=== PATIENT | female | born 1935 | race Caucasian/White ===

== ENCOUNTER 2018-04-11 11:20 | Inpatient (IN) | payer MEDICARE, OTHER ==
[2018-04-11] MEDS: SOD CHLORIDE 0.9% 500 ML IV (11:38)
[2018-04-11] MEDS: PANTOPRAZOLE 40 MG INJ IV (11:38)
[2018-04-11 11:48] LABS: ADD MAN DIFF? NO
[2018-04-11 11:51] LABS: BASOPHILS % 0.2 % (0.0-2.0); EOSINOPHILS % 0.1 % (0.0-7.0); HEMATOCRIT 25.8 % (37.0-47.0); HEMOGLOBIN 8.2 g/dl (12.0-16.0); LYMPHOCYTES # 2.2 10^3/ul (0.8-2.9); LYMPHOCYTES % 16.4 % (15.0-51.0); MEAN CORPUSCULAR HEMOGLOBIN 22.5 pg (29.0-33.0); MEAN CORPUSCULAR HGB CONC 31.8 g/dl (32.0-37.0); MEAN CORPUSCULAR VOLUME 70.7 fl (82.0-101.0); MEAN PLATELET VOLUME 10.5 fl (7.4-10.4); MONOCYTE # 0.8 10^3/ul (0.3-0.9); NEUTROPHIL # 10.1 10^3/ul (1.6-7.5); NEUTROPHILS % 76.4 % (39.0-77.0); PLATELET COUNT 368 10^3/UL (140-415); RED BLOOD COUNT 3.65 10^6/ul (4.20-5.40); RED CELL DISTRIBUTION WIDTH 15.1 % (11.5-14.5)
[2018-04-11 11:51] LABS: WHITE BLOOD COUNT 13.2 10^3/ul (4.8-10.8)
[2018-04-11] MEDS ORDERED: ONDANSETRON 4 MG INJ (12:11)
[2018-04-11 12:14] LABS: ALANINE AMINOTRANSFERASE 11 IU/L (13-69); ALBUMIN 3.7 g/dl (3.3-4.9); ALBUMIN/GLOBULIN RATIO 1.37; ALKALINE PHOSPHATASE 52 IU/L (42-121); ANION GAP 8 (5-13); ASPARTATE AMINO TRANSFERASE 15 IU/L (15-46); BLOOD UREA NITROGEN 39 mg/dl (7-20); CALCIUM 9.4 mg/dl (8.4-10.2); CARBON DIOXIDE 28 mmol/L (21-31); CHLORIDE 98 mmol/L (97-110); CREATININE 0.63 mg/dl (0.44-1.00); GLUCOSE 143 mg/dl (70-220); SODIUM 134 mmol/L (135-144); TOTAL PROTEIN 6.4 g/dl (6.1-8.1)
[2018-04-11 12:21] LABS: INR 1.18; PARTIAL THROMBOPLASTIN TIME 27.9 Sec (23.0-35.0); PROTIME 15.1 Sec (11.9-14.9); PT RATIO 1.2
[2018-04-11] MEDS: ONDANSETRON 4 MG INJ IV (12:30)
[2018-04-11] MEDS ORDERED: LABETALOL HCL 20MG INJ IV ×2 (13:30→19:00)
[2018-04-11] MEDS ORDERED: NACL 0.9% 3 ML SYG IV (13:30)
[2018-04-11] MEDS ORDERED: morphine 2 MG INJ IV (13:30)
[2018-04-11] MEDS ORDERED: ACETAMINOPHEN 325 MG TAB PO (13:30)
[2018-04-11] MEDS: SOD CHLORIDE 0.9% 1,000 ML IV ×2 (13:55→21:04)
[2018-04-11 14:40] LABS: IMMEDIATE SPIN CROSSMATCH 1 3
[2018-04-11] MEDS: CEFTRIAXONE 1 GM/50 ML (PMX) 50 ML IVPB (16:53)
[2018-04-11] MEDS: SOD CHLORIDE 0.9% 0 ML IV (16:59)
[2018-04-11] MEDS: OCTREOTIDE 1 MG in DEXTROSE 5% 95 ML IV (17:27)
[2018-04-11] MEDS: PANTOPRAZOLE IV 80 MG in SOD CHLORIDE 0.9% 100 ML IV (17:27)
[2018-04-11] MEDS ORDERED: OCTREOTIDE 1 MG in DEXTROSE 5% 95 ML IV (19:00)
[2018-04-11] MEDS ORDERED: ONDANSETRON 4 MG INJ IV (19:00)
[2018-04-11] MEDS ORDERED: FENTAnyl 50 MCG/ML VIAL IV (19:00)
[2018-04-11] MEDS ORDERED: DIPHENHYDRAMINE 50 MG INJ IV (19:00)
[2018-04-11] MEDS ORDERED: BARIUM SULF 2% 450 ML BTL (BERRY SMOOTHIE) PO (19:30)
[2018-04-11 19:54] LABS: HEMATOCRIT 25.8 % (37.0-47.0); HEMOGLOBIN 8.2 g/dl (12.0-16.0)
[2018-04-11] MEDS: SUCRALFATE (100 MG/ML) 10ML CUP PO (20:59)
[2018-04-12 01:09] LABS: HEMATOCRIT 22.6 % (37.0-47.0); HEMOGLOBIN 7.2 g/dl (12.0-16.0)
[2018-04-12] MEDS: PANTOPRAZOLE IV 80 MG in SOD CHLORIDE 0.9% 100 ML IV ×4 (03:31→20:51)
[2018-04-12] MEDS: SOD CHLORIDE 0.9% 1,000 ML IV ×2 (05:17→12:43)
[2018-04-12 05:39] LABS: ADD MAN DIFF? NO
[2018-04-12 05:49] LABS: BASOPHILS % 0.3 % (0.0-2.0); EOSINOPHILS # 0.2 10^3/ul (0.0-0.5); EOSINOPHILS % 1.7 % (0.0-7.0); HEMOGLOBIN 7.3 g/dl (12.0-16.0); LYMPHOCYTES # 2.7 10^3/ul (0.8-2.9); LYMPHOCYTES % 30.4 % (15.0-51.0); MEAN CORPUSCULAR HEMOGLOBIN 23.4 pg (29.0-33.0); MEAN CORPUSCULAR HGB CONC 31.7 g/dl (32.0-37.0); MEAN CORPUSCULAR VOLUME 73.7 fl (82.0-101.0); MEAN PLATELET VOLUME 10.7 fl (7.4-10.4); MONOCYTE # 0.6 10^3/ul (0.3-0.9); MONOCYTES % 6.8 % (0.0-11.0); NEUTROPHIL # 5.2 10^3/ul (1.6-7.5); NEUTROPHILS % 59.7 % (39.0-77.0); PLATELET COUNT 305 10^3/UL (140-415); RED BLOOD COUNT 3.12 10^6/ul (4.20-5.40)
[2018-04-12 05:49] LABS: WHITE BLOOD COUNT 8.7 10^3/ul (4.8-10.8)
[2018-04-12 06:09] LABS: ALANINE AMINOTRANSFERASE 9 IU/L (13-69); ALBUMIN 2.9 g/dl (3.3-4.9); ALKALINE PHOSPHATASE 43 IU/L (42-121); ANION GAP 6 (5-13); ASPARTATE AMINO TRANSFERASE 14 IU/L (15-46); BLOOD UREA NITROGEN 29 mg/dl (7-20); CALCIUM 8.7 mg/dl (8.4-10.2); CARBON DIOXIDE 25 mmol/L (21-31); CHLORIDE 104 mmol/L (97-110); CREATININE 0.62 mg/dl (0.44-1.00); GLUCOSE 128 mg/dl (70-220); POTASSIUM 3.9 mmol/L (3.5-5.1); SODIUM 135 mmol/L (135-144); TOTAL PROTEIN 5.3 g/dl (6.1-8.1)
[2018-04-12 06:24] LABS: HEMOGLOBIN A1C 5.5 % (0-5.9)
[2018-04-12] MEDS: SUCRALFATE (100 MG/ML) 10ML CUP PO ×4 (08:08→20:48)
[2018-04-12] MEDS: OCTREOTIDE 1 MG in DEXTROSE 5% 95 ML IV ×2 (11:00→14:09)
[2018-04-12] MEDS: IOHEXOL 14.3 MG(I)/ML (ADULT) BTL PO (11:37)
[2018-04-12] MEDS: SOD CHLORIDE 0.9% 100 ML (12:35)
[2018-04-12] MEDS: IOHEXOL 300MG/ML 150 ML BTL (12:35)
[2018-04-12] MEDS ORDERED: ALBUTEROL/IPRATROPIUM (NEB) 3 ML AMP HHN ×2 (13:10→13:30)
[2018-04-12] MEDS: FERROUS SULFATE (EC) 325 MG TAB PO ×2 (14:56→20:48)
[2018-04-12] MEDS: FUROSEMIDE 20 MG INJ IV (14:56)
[2018-04-12] MEDS: HYDROCHLOROTHIAZIDE 25 MG TAB PO (14:57)
[2018-04-12] MEDS: AMLODIPINE 10 MG TAB PO (14:57)
[2018-04-12] MEDS: ARIPIPRAZOLE 2 MG TAB PO (14:58)
[2018-04-12] MEDS: CEFTRIAXONE 1 GM/50 ML (PMX) 50 ML IVPB (14:58)
[2018-04-12] MEDS: ATENOLOL 50 MG TAB PO (14:58)
[2018-04-12] MEDS: ALBUTEROL/IPRATROPIUM (NEB) 3 ML AMP HHN (16:19)
[2018-04-12] MEDS: ATORVASTATIN 80 MG TAB PO (20:48)
[2018-04-12] MEDS: QUETIAPINE 25 MG TAB PO (20:48)
[2018-04-12] MEDS: TAMSULOSIN (SR) 0.4 MG CAP PO (20:48)
[2018-04-13 05:44] LABS: ADD MAN DIFF? NO
[2018-04-13 05:56] LABS: BASOPHIL # 0.1 10^3/ul (0.0-0.1); BASOPHILS % 0.7 % (0.0-2.0); EOSINOPHILS # 0.3 10^3/ul (0.0-0.5); HEMATOCRIT 25.5 % (37.0-47.0); HEMOGLOBIN 8.2 g/dl (12.0-16.0); LYMPHOCYTES # 3.7 10^3/ul (0.8-2.9); LYMPHOCYTES % 37.5 % (15.0-51.0); MEAN CORPUSCULAR HGB CONC 32.2 g/dl (32.0-37.0); MEAN CORPUSCULAR VOLUME 74.8 fl (82.0-101.0); MEAN PLATELET VOLUME 10.4 fl (7.4-10.4); MONOCYTE # 0.7 10^3/ul (0.3-0.9); MONOCYTES % 7.3 % (0.0-11.0); NEUTROPHILS % 50.4 % (39.0-77.0); PLATELET COUNT 316 10^3/UL (140-415); RED BLOOD COUNT 3.41 10^6/ul (4.20-5.40); RED CELL DISTRIBUTION WIDTH 16.5 % (11.5-14.5)
[2018-04-13] MEDS: PANTOPRAZOLE IV 80 MG in SOD CHLORIDE 0.9% 100 ML IV ×3 (06:22→16:07)
[2018-04-13 06:24] LABS: LIPASE 168 U/L (23-300)
[2018-04-13 06:24] LABS: AMYLASE 40 U/L (11-123)
[2018-04-13 06:27] LABS: ALANINE AMINOTRANSFERASE 17 IU/L (13-69); ALBUMIN/GLOBULIN RATIO 1.11; ALKALINE PHOSPHATASE 43 IU/L (42-121); ANION GAP 7 (5-13); ASPARTATE AMINO TRANSFERASE 17 IU/L (15-46); BILIRUBIN,INDIRECT 0.1 mg/dl (0-1.1); BILIRUBIN,TOTAL 0.1 mg/dl (0.2-1.3); BLOOD UREA NITROGEN 18 mg/dl (7-20); CALCIUM 8.7 mg/dl (8.4-10.2); CARBON DIOXIDE 29 mmol/L (21-31); CHLORIDE 93 mmol/L (97-110); CREATININE 0.61 mg/dl (0.44-1.00); GLUCOSE 107 mg/dl (70-220); MAGNESIUM 1.8 mg/dl (1.7-2.5); POTASSIUM 3.6 mmol/L (3.5-5.1); SODIUM 129 mmol/L (135-144); TOTAL PROTEIN 5.7 g/dl (6.1-8.1)
[2018-04-13] MEDS: SUCRALFATE (100 MG/ML) 10ML CUP PO ×4 (08:43→21:28)
[2018-04-13] MEDS: FERROUS SULFATE (EC) 325 MG TAB PO ×2 (08:43→21:28)
[2018-04-13] MEDS: AMLODIPINE 10 MG TAB PO (08:43)
[2018-04-13] MEDS: HYDROCHLOROTHIAZIDE 25 MG TAB PO (08:44)
[2018-04-13] MEDS: ATENOLOL 50 MG TAB PO (08:45)
[2018-04-13] MEDS: ARIPIPRAZOLE 2 MG TAB PO (10:36)
[2018-04-13] MEDS: CEFTRIAXONE 1 GM/50 ML (PMX) 50 ML IVPB (12:59)
[2018-04-13] MEDS: PROPOFOL 20 ML (21:28)
[2018-04-13] MEDS: ATORVASTATIN 20 MG TAB PO (21:28)
[2018-04-13] MEDS: LIDOCAINE 2% (SDV) 5 ML INJ (21:29)
[2018-04-13] MEDS: HYDROCODONE/APAP (5/325) TAB PO (21:39)
[2018-04-14] MEDS: PANTOPRAZOLE IV 80 MG in SOD CHLORIDE 0.9% 100 ML IV ×3 (02:23→22:53)
[2018-04-14 06:25] LABS: ADD MAN DIFF? NO
[2018-04-14 06:31] LABS: BASOPHIL # 0.1 10^3/ul (0.0-0.1); BASOPHILS % 0.8 % (0.0-2.0); EOSINOPHILS # 0.5 10^3/ul (0.0-0.5); EOSINOPHILS % 4.2 % (0.0-7.0); HEMATOCRIT 25.3 % (37.0-47.0); HEMOGLOBIN 8.1 g/dl (12.0-16.0); LYMPHOCYTES # 3.9 10^3/ul (0.8-2.9); LYMPHOCYTES % 35.6 % (15.0-51.0); MEAN CORPUSCULAR HEMOGLOBIN 23.9 pg (29.0-33.0); MEAN CORPUSCULAR VOLUME 74.6 fl (82.0-101.0); MEAN PLATELET VOLUME 10.5 fl (7.4-10.4); MONOCYTE # 0.9 10^3/ul (0.3-0.9); MONOCYTES % 8.4 % (0.0-11.0); NEUTROPHIL # 5.5 10^3/ul (1.6-7.5); NEUTROPHILS % 49.4 % (39.0-77.0); PLATELET COUNT 336 10^3/UL (140-415); RED BLOOD COUNT 3.39 10^6/ul (4.20-5.40); RED CELL DISTRIBUTION WIDTH 16.3 % (11.5-14.5)
[2018-04-14 06:31] LABS: WHITE BLOOD COUNT 11.1 10^3/ul (4.8-10.8)
[2018-04-14 07:10] LABS: ANION GAP 6 (5-13); BLOOD UREA NITROGEN 18 mg/dl (7-20); CALCIUM 8.6 mg/dl (8.4-10.2); CARBON DIOXIDE 31 mmol/L (21-31); CHLORIDE 90 mmol/L (97-110); CREATININE 0.65 mg/dl (0.44-1.00); GLUCOSE 95 mg/dl (70-220); MAGNESIUM 1.8 mg/dl (1.7-2.5); POTASSIUM 3.4 mmol/L (3.5-5.1); SODIUM 127 mmol/L (135-144)
[2018-04-14 07:15] LABS: FREE T4 (FREE THYROXINE) 1.57 ng/dl (0.85-1.93)
[2018-04-14 08:34] LABS: THYROID STIMULATING HORMONE 0.464 MIU/L (0.465-4.680)
[2018-04-14] MEDS: FERROUS SULFATE (EC) 325 MG TAB PO ×2 (10:06→21:02)
[2018-04-14] MEDS: SUCRALFATE (100 MG/ML) 10ML CUP PO ×4 (10:06→21:02)
[2018-04-14] MEDS: AMLODIPINE 10 MG TAB PO (10:07)
[2018-04-14 11:32] LABS: SODIUM,URINE RANDOM 129 mmol/L (30-90)
[2018-04-14] MEDS: CEFTRIAXONE 1 GM/50 ML (PMX) 50 ML IVPB (12:46)
[2018-04-14] MEDS: metroNIDAZOLE 500 MG TAB PO ×2 (13:34→21:02)
[2018-04-14 13:37] LABS: IRON 60 ug/dl (35-150)
[2018-04-14 13:46] LABS: % IRON SATURATION 19 % SAT (22-52); TOTAL IRON BINDING CAPACITY 324 ug/dl (241-421)
[2018-04-14] MEDS: PANTOPRAZOLE (EC) 40 MG TAB PO (17:26)
[2018-04-14] MEDS: ATORVASTATIN 20 MG TAB PO (21:02)
[2018-04-15] MEDS: PANTOPRAZOLE (EC) 40 MG TAB PO (05:44)
[2018-04-15] MEDS: metroNIDAZOLE 500 MG TAB PO ×3 (05:44→21:06)
[2018-04-15] MEDS: HYDROCODONE/APAP (5/325) TAB PO (06:02)
[2018-04-15] MEDS: AMLODIPINE 10 MG TAB PO (08:34)
[2018-04-15] MEDS: FERROUS SULFATE (EC) 325 MG TAB PO ×2 (08:34→21:06)
[2018-04-15] MEDS: SUCRALFATE (100 MG/ML) 10ML CUP PO ×4 (08:35→21:06)
[2018-04-15] MEDS: ONDANSETRON 4 MG INJ IV (08:43)
[2018-04-15 10:59] LABS: ADD MAN DIFF? NO
[2018-04-15 11:02] LABS: WHITE BLOOD COUNT 12.7 10^3/ul (4.8-10.8)
[2018-04-15 11:02] LABS: BASOPHIL # 0.1 10^3/ul (0.0-0.1); BASOPHILS % 0.5 % (0.0-2.0); EOSINOPHILS # 0.2 10^3/ul (0.0-0.5); EOSINOPHILS % 1.5 % (0.0-7.0); HEMATOCRIT 22.4 % (37.0-47.0); HEMOGLOBIN 7.3 g/dl (12.0-16.0); LYMPHOCYTES # 2.3 10^3/ul (0.8-2.9); MEAN CORPUSCULAR HEMOGLOBIN 24.4 pg (29.0-33.0); MEAN CORPUSCULAR HGB CONC 32.6 g/dl (32.0-37.0); MEAN CORPUSCULAR VOLUME 74.9 fl (82.0-101.0); MEAN PLATELET VOLUME 10.2 fl (7.4-10.4); MONOCYTE # 0.9 10^3/ul (0.3-0.9); MONOCYTES % 6.9 % (0.0-11.0); NEUTROPHIL # 8.9 10^3/ul (1.6-7.5); NEUTROPHILS % 70.3 % (39.0-77.0); PLATELET COUNT 326 10^3/UL (140-415); RED BLOOD COUNT 2.99 10^6/ul (4.20-5.40)
[2018-04-15 11:31] LABS: ALANINE AMINOTRANSFERASE 12 IU/L (13-69); ALBUMIN/GLOBULIN RATIO 1.36; ALKALINE PHOSPHATASE 48 IU/L (42-121); ANION GAP 8 (5-13); ASPARTATE AMINO TRANSFERASE 14 IU/L (15-46); BLOOD UREA NITROGEN 17 mg/dl (7-20); CALCIUM 8.6 mg/dl (8.4-10.2); CARBON DIOXIDE 28 mmol/L (21-31); CHLORIDE 91 mmol/L (97-110); CREATININE 0.55 mg/dl (0.44-1.00); GLUCOSE 152 mg/dl (70-220); POTASSIUM 3.4 mmol/L (3.5-5.1); SODIUM 127 mmol/L (135-144); TOTAL PROTEIN 5.2 g/dl (6.1-8.1)
[2018-04-15] MEDS: SOD FERRIC GLUC COMPLX 125 MG in SOD CHLORIDE 0.9% 100 ML IVPB (11:32)
[2018-04-15 14:05] LABS: OCCULT BLOOD STOOL POSITIVE (NEGATIVE)
[2018-04-15] MEDS: CEFTRIAXONE 1 GM/50 ML (PMX) 50 ML IVPB (14:40)
[2018-04-15] MEDS: PANTOPRAZOLE IV 80 MG in SOD CHLORIDE 0.9% 100 ML IV (18:29)
[2018-04-15] MEDS: ATORVASTATIN 20 MG TAB PO (21:06)
[2018-04-15 22:17] LABS: IMMEDIATE SPIN CROSSMATCH 1 2
[2018-04-16] MEDS: PANTOPRAZOLE IV 80 MG in SOD CHLORIDE 0.9% 100 ML IV ×3 (03:29→22:21)
[2018-04-16] MEDS: metroNIDAZOLE 500 MG TAB PO (05:26)
[2018-04-16 05:47] LABS: HEMATOCRIT 28.4 % (37.0-47.0); HEMOGLOBIN 9.2 g/dl (12.0-16.0)
[2018-04-16] MEDS: SUCRALFATE (100 MG/ML) 10ML CUP PO ×4 (08:30→21:04)
[2018-04-16] MEDS: FERROUS SULFATE (EC) 325 MG TAB PO ×2 (08:30→21:03)
[2018-04-16] MEDS: AMLODIPINE 10 MG TAB PO (08:31)
[2018-04-16] MEDS: CEFTRIAXONE 1 GM/50 ML (PMX) 50 ML IVPB (12:25)
[2018-04-16 12:40] LABS: HEMATOCRIT 30.7 % (37.0-47.0); HEMOGLOBIN 9.9 g/dl (12.0-16.0)
[2018-04-16] MEDS: POTASSIUM CHLORIDE 100 ML IVPB (13:50)
[2018-04-16 19:22] LABS: HEMATOCRIT 29.3 % (37.0-47.0); HEMOGLOBIN 9.4 g/dl (12.0-16.0)
[2018-04-16] MEDS: ATORVASTATIN 20 MG TAB PO (21:04)
[2018-04-17 05:52] LABS: WHITE BLOOD COUNT 12.1 10^3/ul (4.8-10.8)
[2018-04-17 05:52] LABS: ABNORMAL IP MESSAGE 1; HEMATOCRIT 28.1 % (37.0-47.0); MEAN CORPUSCULAR HEMOGLOBIN 25.1 pg (29.0-33.0); MEAN CORPUSCULAR VOLUME 78.5 fl (82.0-101.0); MEAN PLATELET VOLUME 10.3 fl (7.4-10.4); PLATELET COUNT 279 10^3/UL (140-415); RED BLOOD COUNT 3.58 10^6/ul (4.20-5.40); RED CELL DISTRIBUTION WIDTH 17.8 % (11.5-14.5)
[2018-04-17 06:01] LABS: ADD MAN DIFF? YES; POSITIVE DIFF @See below
[2018-04-17 06:06] LABS: INR 1.03; PROTIME 13.6 Sec (11.9-14.9); PT RATIO 1.1
[2018-04-17 06:07] LABS: PARTIAL THROMBOPLASTIN TIME 24.9 Sec (23.0-35.0)
[2018-04-17 06:34] LABS: ALANINE AMINOTRANSFERASE 14 IU/L (13-69); ALBUMIN 3.1 g/dl (3.3-4.9); ALBUMIN/GLOBULIN RATIO 1.29; ALKALINE PHOSPHATASE 51 IU/L (42-121); ANION GAP 6 (5-13); ASPARTATE AMINO TRANSFERASE 14 IU/L (15-46); BLOOD UREA NITROGEN 12 mg/dl (7-20); CALCIUM 9.2 mg/dl (8.4-10.2); CARBON DIOXIDE 28 mmol/L (21-31); CHLORIDE 98 mmol/L (97-110); CREATININE 0.49 mg/dl (0.44-1.00); GLUCOSE 95 mg/dl (70-220); POTASSIUM 3.9 mmol/L (3.5-5.1); SODIUM 132 mmol/L (135-144); TOTAL PROTEIN 5.5 g/dl (6.1-8.1)
[2018-04-17 07:22] LABS: ANISOCYTOSIS 1+ (0-0); BAND NEUTROPHILS #M 0.1 10^3/ul (0.0-0.6); BAND NEUTROPHILS % (M) 1 % (0-4); EOSINOPHILS % (M) 5 % (0-7); LYMPHOCYTES #M 3.1 10^3/ul (0.8-2.9); LYMPHOCYTES % (M) 26 % (15-51); METAMYELOCYTES #M 0.1 10^3/ul (0.0-0.0); METAMYELOCYTES %M 1 % (0-0); MICROCYTOSIS 1+ (0-0); MONOCYTE #M 0.3 10^3/ul (0.3-0.9); MONOCYTES % (M) 3 % (0-11); MYELOCYTES #M 0.3 10^3/ul (0.0-0.0); MYELOCYTES % (M) 3 % (0-0); OVALOCYTES 1+ (0-0); PLATELET ESTIMATE NORMAL; POIKILOCYTOSIS 1+ (0-0); POLYCHROMASIA 1+ (0-0); REACTIVE LYMPHOCYTES #M 0.4 10^3/ul (0.0-0.0); REACTIVE LYMPHOCYTES% (M) 4 % (0-0); SEG NEUT #M 6.9 10^3/ul (1.6-7.5); SEGMENTED NEUTROPHILS (M) % 57 % (39-77); SMUDGE%M 9 % (0-0)
[2018-04-17 07:23] LABS: MAGNESIUM 1.9 mg/dl (1.7-2.5); URIC ACID 2.7 mg/dl (3.1-7.9)
[2018-04-17 07:56] LABS: OSMOLALITY 273 mOsm/kg (280-295)
[2018-04-17] MEDS: FERROUS SULFATE (EC) 325 MG TAB PO ×2 (08:00→21:44)
[2018-04-17] MEDS: SUCRALFATE (100 MG/ML) 10ML CUP PO ×4 (08:00→21:44)
[2018-04-17] MEDS: PANTOPRAZOLE IV 80 MG in SOD CHLORIDE 0.9% 100 ML IV (08:00)
[2018-04-17] MEDS: AMLODIPINE 10 MG TAB PO (08:00)
[2018-04-17] MEDS: MAGNESIUM CITRATE 300 ML BTL PO (12:20)
[2018-04-17] MEDS: CEFTRIAXONE 1 GM/50 ML (PMX) 50 ML IVPB (13:12)
[2018-04-17 14:39] LABS: SODIUM,URINE RANDOM 79 mmol/L (30-90)
[2018-04-17 14:43] LABS: CREATININE,URINE RANDOM 85.37 mg/dl (20-320); PROTEIN/CREAT RATIO 0.12 RATIO
[2018-04-17 14:47] LABS: OSMOLALITY,URINE 490 mOsm/kg (250-1200)
[2018-04-17] MEDS: PANTOPRAZOLE (EC) 40 MG TAB PO (17:41)
[2018-04-17] MEDS: DOCUSATE SODIUM 100 MG CAP PO (21:00)
[2018-04-17] MEDS: ATORVASTATIN 20 MG TAB PO (21:44)
[2018-04-18] MEDS: PANTOPRAZOLE (EC) 40 MG TAB PO ×2 (05:56→16:14)
[2018-04-18] MEDS: DOCUSATE SODIUM 100 MG CAP PO ×2 (07:26→21:22)
[2018-04-18] MEDS: POLYETHYLENE GLYCOL 17 GM PACKET PO (07:27)
[2018-04-18] MEDS: AMLODIPINE 10 MG TAB PO (08:05)
[2018-04-18] MEDS: FERROUS SULFATE (EC) 325 MG TAB PO ×2 (08:05→21:22)
[2018-04-18] MEDS: SUCRALFATE (100 MG/ML) 10ML CUP PO ×4 (08:05→21:22)
[2018-04-18 13:03] LABS: FREE T4 (FREE THYROXINE) 1.43 ng/dl (0.85-1.93)
[2018-04-18 13:03] LABS: FREE T3 2.32 pg/ml (2.77-5.27)
[2018-04-18] MEDS: CEFTRIAXONE 1 GM/50 ML (PMX) 50 ML IVPB (14:05)
[2018-04-18 14:30] LABS: CANCER ANTIGEN 19-9 8.2 U/ml (0.0-37.0)
[2018-04-18] MEDS: ATORVASTATIN 20 MG TAB PO (21:22)
[2018-04-19 06:07] LABS: WHITE BLOOD COUNT 9.5 10^3/ul (4.8-10.8)
[2018-04-19 06:07] LABS: ABNORMAL IP MESSAGE 1; HEMATOCRIT 27.4 % (37.0-47.0); HEMOGLOBIN 8.6 g/dl (12.0-16.0); MEAN CORPUSCULAR HEMOGLOBIN 24.6 pg (29.0-33.0); MEAN CORPUSCULAR HGB CONC 31.4 g/dl (32.0-37.0); MEAN CORPUSCULAR VOLUME 78.5 fl (82.0-101.0); MEAN PLATELET VOLUME 10.5 fl (7.4-10.4); PLATELET COUNT 329 10^3/UL (140-415); RED BLOOD COUNT 3.49 10^6/ul (4.20-5.40); RED CELL DISTRIBUTION WIDTH 18.5 % (11.5-14.5)
[2018-04-19 06:26] LABS: ADD MAN DIFF? YES; POSITIVE DIFF @See below
[2018-04-19 06:46] LABS: ANION GAP 10 (5-13); BLOOD UREA NITROGEN 7 mg/dl (7-20); CALCIUM 9.3 mg/dl (8.4-10.2); CARBON DIOXIDE 27 mmol/L (21-31); CHLORIDE 97 mmol/L (97-110); CREATININE 0.51 mg/dl (0.44-1.00); GLUCOSE 95 mg/dl (70-220); POTASSIUM 4.2 mmol/L (3.5-5.1); SODIUM 134 mmol/L (135-144)
[2018-04-19] MEDS: PANTOPRAZOLE (EC) 40 MG TAB PO ×2 (06:47→17:29)
[2018-04-19 08:02] LABS: ANISOCYTOSIS 2+ (0-0); ELLIPTO 1+ (0-0); EOSINOPHILS % (M) 8 % (0-7); GIANT THROMBO% (M) 2 % (0-0); LYMPHOCYTES % (M) 22 % (15-51); METAMYELOCYTES %M 1 % (0-0); MICROCYTOSIS 2+ (0-0); MONOCYTE #M 0.1 10^3/ul (0.3-0.9); MONOCYTES % (M) 2 % (0-11); MYELOCYTES #M 0.1 10^3/ul (0.0-0.0); MYELOCYTES % (M) 2 % (0-0); PLATELET ESTIMATE NORMAL; POIKILOCYTOSIS 1+ (0-0); POLYCHROMASIA 2+ (0-0); REACTIVE LYMPHOCYTES #M 0.1 10^3/ul (0.0-0.0); REACTIVE LYMPHOCYTES% (M) 2 % (0-0); SEGMENTED NEUTROPHILS (M) % 63 % (39-77); SMUDGE%M 9 % (0-0)
[2018-04-19] MEDS: SUCRALFATE (100 MG/ML) 10ML CUP PO ×4 (08:19→20:15)
[2018-04-19] MEDS: DOCUSATE SODIUM 100 MG CAP PO ×2 (08:19→20:15)
[2018-04-19] MEDS: FERROUS SULFATE (EC) 325 MG TAB PO ×2 (08:19→20:15)
[2018-04-19] MEDS: POLYETHYLENE GLYCOL 17 GM PACKET PO (08:19)
[2018-04-19] MEDS: AMLODIPINE 10 MG TAB PO (08:19)
[2018-04-19] MEDS: CEFTRIAXONE 1 GM/50 ML (PMX) 50 ML IVPB (12:07)
[2018-04-19] MEDS: ATORVASTATIN 20 MG TAB PO (20:15)
[2018-04-20] MEDS: PANTOPRAZOLE (EC) 40 MG TAB PO (05:46)
[2018-04-20 05:59] LABS: ADD MAN DIFF? NO
[2018-04-20 06:11] LABS: WHITE BLOOD COUNT 7.7 10^3/ul (4.8-10.8)
[2018-04-20 06:11] LABS: BASOPHIL # 0.1 10^3/ul (0.0-0.1); BASOPHILS % 1.2 % (0.0-2.0); EOSINOPHILS # 0.3 10^3/ul (0.0-0.5); EOSINOPHILS % 3.3 % (0.0-7.0); HEMATOCRIT 28.5 % (37.0-47.0); HEMOGLOBIN 8.8 g/dl (12.0-16.0); LYMPHOCYTES # 2.2 10^3/ul (0.8-2.9); LYMPHOCYTES % 28.6 % (15.0-51.0); MEAN CORPUSCULAR HEMOGLOBIN 24.5 pg (29.0-33.0); MEAN CORPUSCULAR HGB CONC 30.9 g/dl (32.0-37.0); MEAN CORPUSCULAR VOLUME 79.4 fl (82.0-101.0); MEAN PLATELET VOLUME 10.9 fl (7.4-10.4); MONOCYTE # 0.6 10^3/ul (0.3-0.9); MONOCYTES % 7.3 % (0.0-11.0); NEUTROPHIL # 4.2 10^3/ul (1.6-7.5); NEUTROPHILS % 55.3 % (39.0-77.0); PLATELET COUNT 342 10^3/UL (140-415); RED BLOOD COUNT 3.59 10^6/ul (4.20-5.40); RED CELL DISTRIBUTION WIDTH 18.6 % (11.5-14.5)
[2018-04-20 06:34] LABS: ANION GAP 12 (5-13); BLOOD UREA NITROGEN 7 mg/dl (7-20); CALCIUM 9.2 mg/dl (8.4-10.2); CARBON DIOXIDE 25 mmol/L (21-31); CHLORIDE 97 mmol/L (97-110); CREATININE 0.48 mg/dl (0.44-1.00); GLUCOSE 89 mg/dl (70-220); POTASSIUM 4.5 mmol/L (3.5-5.1); SODIUM 134 mmol/L (135-144)
[2018-04-20] MEDS: DOCUSATE SODIUM 100 MG CAP PO (07:28)
[2018-04-20] MEDS: FERROUS SULFATE (EC) 325 MG TAB PO (07:28)
[2018-04-20] MEDS: POLYETHYLENE GLYCOL 17 GM PACKET PO (07:28)
[2018-04-20] MEDS: SUCRALFATE (100 MG/ML) 10ML CUP PO ×2 (07:28→12:07)
[2018-04-20] MEDS: AMLODIPINE 10 MG TAB PO (07:29)
[2018-04-20] MEDS: CEFTRIAXONE 1 GM/50 ML (PMX) 50 ML IVPB (12:07)
== END 2018-04-20 14:25 | DRG 378 ==
LOC: E/R 11:20 → 6WM 12:59
PROC: 0DB68ZX Excision of Stomach, Via Natural or Artificial Opening Endoscopic, Diagnostic (ICD-10-PCS; principal; 2018-04-11 17:45)
PROC: 30233N1 Transfusion of Nonautologous Red Blood Cells into Peripheral Vein, Percutaneous Approach (ICD-10-PCS; 2018-04-11 17:45)
PROC: 30233N1 Transfusion of Nonautologous Red Blood Cells into Peripheral Vein, Percutaneous Approach (ICD-10-PCS; 2018-04-11 17:45)
DX: K26.0 Acute duodenal ulcer with hemorrhage (principal); D62 Acute posthemorrhagic anemia; D68.9 Coagulation defect, unspecified; Z68.41 Body mass index [BMI] 40.0-44.9, adult; E87.1 Hypo-osmolality and hyponatremia; I10 Essential (primary) hypertension; G30.9 Alzheimer's disease, unspecified; F02.80 Dementia in other diseases classified elsewhere, unspecified severity, without behavioral disturbance, psychotic disturbance, mood disturbance, and anxiety; K21.9 Gastro-esophageal reflux disease without esophagitis; D64.9 Anemia, unspecified; E66.01 Morbid (severe) obesity due to excess calories; E78.5 Hyperlipidemia, unspecified; E11.9 Type 2 diabetes mellitus without complications; F32.9 Major depressive disorder, single episode, unspecified; R32 Unspecified urinary incontinence; N20.0 Calculus of kidney; I27.20 Pulmonary hypertension, unspecified; I35.0 Nonrheumatic aortic (valve) stenosis; M17.0 Bilateral primary osteoarthritis of knee
CPT/HCPCS: 36415; 36430; 71045; 74177; 80048; 80053; 81003; 82150; 82270; 82570; 82941; 83036; 83540; 83690; 83735; 83930; 83935; 84100; 84300; 84439; 84443; 84481; 84484; 84560; 85014; 85018; 85025; 85610; 85730; 86301; 86850; 86900; 86901; 86920; 87086; 88305; 88312; 89190; 93005; 93306; 94640; 96374; 96375; 97110; 97162; 97530; 99291-25